=== PATIENT | male | born 1935 | race Caucasian/White ===

== ENCOUNTER 2020-03-13 09:39 | Inpatient (IN) ==
[2020-03-13] MEDS ORDERED: 0.9 % Sodium Chloride 500 ML IVC ONE (10:04)
[2020-03-13 10:11] LABS: Bilirubin,Urine Negative (Negative); Blood,Urine Negative (Negative); Clarity,Urine Clear (Clear); Color,Urine Yellow (Yellow); Glucose,Urine (UA) Normal (Normal); Ketones,Urine Negative (Negative); Leukocyte Esterase,Urine Negative (Negative); Nitrite,Urine Negative (Negative); PH,Urine 5.5 pH Units (5.0-8.0); Protein,Urine Negative (Neg-Trace); Specific Gravity,Urine 1.025 (1.010-1.025); Urobilinogen,Urine Normal (Normal)
[2020-03-13 10:18] LABS: Basophils # 0.1 K/mcL (0.0-0.2); Basophils % 0.9 %; Eosinophils % 0.3 %; Hematocrit 45.9 % (37.5-50.1); Hemoglobin 15.1 g/dL (12.9-16.9); Immature Granulocytes % 0.2 % (0-4); Lymphocytes # 1.3 K/mcL (0.6-4.6); Lymphocytes % 12.4 %; Mean Corpuscular HGB Conc 32.9 g/dL (31.6-35.5); Mean Corpuscular Hemoglobin 31.2 pg (28.0-33.3); Mean Corpuscular Volume 94.8 fL (83.0-100.0); Mean Platelet Volume 9.8 fL (9.4-12.4); Neutrophils # 7.8 K/mcL (1.6-8.9); Platelet Count 292 K/mcL (140-400); Red Blood Count 4.84 M/mcL (4.19-5.50); Red Cell Distribution Width 13.2 % (11.5-14.5); Segmented Neutrophils % 76.2 %; White Blood Count 10.2 K/mcL (4.3-11.1)
[2020-03-13 10:32] LABS: Alanine Aminotransferase 11 Units/L (7-52); Albumin 3.9 g/dL (3.5-5.7); Alkaline Phosphatase 55 Units/L (34-104); Aspartate Amino Transferase 23 Units/L (13-39); BUN/Creatinine Ratio 28 (6-26); Bilirubin,Direct 0.2 mg/dL (0.0-0.2); Bilirubin,Indirect 0.6 mg/dL (0.0-1.0); Bilirubin,Total 0.8 mg/dL (0.3-1.0); Blood Urea Nitrogen 35 mg/dL (8-23); Calcium 9.5 mg/dL (8.6-10.3); Carbon Dioxide 32 mEq/L (23-29); Chloride 101 mEq/L (98-107); Glucose 140 mg/dL (70-105); Osmolality,Calculated 304 (280-300); Potassium 3.5 mEq/L (3.5-5.1); Sodium 142 mEq/L (136-145); Total Protein 7.9 g/dL (6.4-8.9); eGFR For African Americans > 60 (> 60); eGFR For Non-African Americans 55 (> 60)
[2020-03-13 10:52] LABS: Troponin I 0.03 ng/mL (< 0.04)
[2020-03-13] MEDS ORDERED: Naloxone 0.4 MG/ML INJ IVP PRN (13:39)
[2020-03-13] MEDS ORDERED: Ondansetron 4 MG/2 ML VIAL IVP PRN (13:39)
[2020-03-13] MEDS ORDERED: Acetaminophen 325 MG TABLET PO PRN (13:39)
[2020-03-13] MEDS ORDERED: Ipratropium/Albuterol Neb 3 ML IH PRN (13:41)
[2020-03-13 14:05] LABS: INR 3.1
[2020-03-13 14:06] LABS: Prothrombin Time 34.4 Seconds (9.4-12.1)
[2020-03-13] MEDS: Furosemide 20 MG TABLET PO SCH (17:04)
[2020-03-13] MEDS: carvediloL 6.25 MG TABLET PO SCH (17:29)
[2020-03-13] MEDS ORDERED: Warfarin perPT PO PRN (18:00)
[2020-03-14 06:36] LABS: Basophils # 0.1 K/mcL (0.0-0.2); Basophils % 0.7 %; Eosinophils # 0.1 K/mcL (0.0-0.6); Eosinophils % 0.6 %; Hematocrit 44.7 % (37.5-50.1); Hemoglobin 14.6 g/dL (12.9-16.9); Immature Granulocytes % 0.2 % (0-4); Lymphocytes # 1.5 K/mcL (0.6-4.6); Lymphocytes % 17.8 %; Mean Corpuscular HGB Conc 32.7 g/dL (31.6-35.5); Mean Corpuscular Hemoglobin 30.9 pg (28.0-33.3); Mean Corpuscular Volume 94.7 fL (83.0-100.0); Monocytes # 0.8 K/mcL (0.0-1.3); Monocytes % 9.7 %; Neutrophils # 6.2 K/mcL (1.6-8.9); Platelet Count 308 K/mcL (140-400); Red Blood Count 4.72 M/mcL (4.19-5.50); Red Cell Distribution Width 13.1 % (11.5-14.5); White Blood Count 8.7 K/mcL (4.3-11.1)
[2020-03-14 06:50] LABS: INR 3.8; Prothrombin Time 42.8 Seconds (9.4-12.1)
[2020-03-14 06:54] LABS: BUN/Creatinine Ratio 32 (6-26); Blood Urea Nitrogen 35 mg/dL (8-23); Calcium 9.4 mg/dL (8.6-10.3); Carbon Dioxide 31 mEq/L (23-29); Chloride 101 mEq/L (98-107); Glucose 128 mg/dL (70-105); Osmolality,Calculated 304 (280-300); Potassium 3.5 mEq/L (3.5-5.1); Sodium 142 mEq/L (136-145); eGFR For African Americans > 60 (> 60); eGFR For Non-African Americans > 60 (> 60)
[2020-03-14] MEDS: Spironolactone 25 MG TABLET PO SCH (08:02)
[2020-03-14] MEDS: carvediloL 6.25 MG TABLET PO SCH ×2 (08:02→16:57)
[2020-03-14] MEDS: Magnesium Oxide 400 MG TABLET PO SCH (08:02)
[2020-03-14] MEDS: Aspirin 81 MG TAB.CHEW PO SCH (08:03)
[2020-03-14] MEDS: Furosemide 20 MG TABLET PO SCH (14:10)
[2020-03-14] MEDS ORDERED: Isovue-370 500 ML BOTTLE IVP ONE (16:20)
[2020-03-15 07:01] LABS: Hematocrit 44.2 % (37.5-50.1); Hemoglobin 14.6 g/dL (12.9-16.9); Mean Corpuscular Hemoglobin 31.3 pg (28.0-33.3); Mean Corpuscular Volume 94.6 fL (83.0-100.0); Mean Platelet Volume 10.8 fL (9.4-12.4); Platelet Count 301 K/mcL (140-400); Red Blood Count 4.67 M/mcL (4.19-5.50); Red Cell Distribution Width 13.1 % (11.5-14.5); White Blood Count 7.8 K/mcL (4.3-11.1)
[2020-03-15 07:19] LABS: BUN/Creatinine Ratio 35 (6-26); Blood Urea Nitrogen 35 mg/dL (8-23); Calcium 9.2 mg/dL (8.6-10.3); Carbon Dioxide 31 mEq/L (23-29); Chloride 102 mEq/L (98-107); Glucose 131 mg/dL (70-105); Osmolality,Calculated 302 (280-300); Potassium 3.6 mEq/L (3.5-5.1); Sodium 141 mEq/L (136-145); eGFR For African Americans > 60 (> 60); eGFR For Non-African Americans > 60 (> 60)
[2020-03-15] MEDS: Spironolactone 25 MG TABLET PO SCH (08:01)
[2020-03-15] MEDS: Aspirin 81 MG TAB.CHEW PO SCH (08:01)
[2020-03-15] MEDS: Magnesium Oxide 400 MG TABLET PO SCH (08:01)
[2020-03-15] MEDS: carvediloL 6.25 MG TABLET PO SCH ×2 (08:02→17:09)
[2020-03-15 12:06] LABS: INR 2.8; Prothrombin Time 31.3 Seconds (9.4-12.1)
[2020-03-15] MEDS: Furosemide 20 MG TABLET PO SCH (13:11)
[2020-03-15] MEDS ORDERED: *HR* Warfarin 2.5 MG TABLET PO ONE (18:00)
[2020-03-16 08:22] LABS: INR 2.8
[2020-03-16] MEDS: Aspirin 81 MG TAB.CHEW PO SCH (08:50)
[2020-03-16] MEDS: carvediloL 6.25 MG TABLET PO SCH ×2 (08:50→17:02)
[2020-03-16] MEDS: Magnesium Oxide 400 MG TABLET PO SCH (08:51)
[2020-03-16] MEDS: Spironolactone 25 MG TABLET PO SCH (08:51)
[2020-03-16] MEDS: Furosemide 20 MG TABLET PO SCH (14:38)
[2020-03-16] MEDS ORDERED: *HR* Warfarin 2.5 MG TABLET PO ONE (18:00)
[2020-03-16] MEDS: Artificial Tears SOLN 15 ML BOTTLE BOTH EYES SCH (21:22)
[2020-03-17 06:49] VITALS: BP 157/85
[2020-03-17 09:10] LABS: INR 2.8; Prothrombin Time 31.9 Seconds (9.4-12.1)
[2020-03-17] MEDS: Spironolactone 25 MG TABLET PO SCH (09:21)
[2020-03-17] MEDS: Artificial Tears SOLN 15 ML BOTTLE BOTH EYES SCH (09:22)
[2020-03-17] MEDS: carvediloL 6.25 MG TABLET PO SCH (09:22)
[2020-03-17] MEDS: Magnesium Oxide 400 MG TABLET PO SCH (09:22)
[2020-03-17] MEDS: Aspirin 81 MG TAB.CHEW PO SCH (09:22)
[2020-03-17] MEDS ORDERED: Furosemide 40 MG TABLET PO SCH (13:41)
== END 2020-03-17 10:16 | disposition other institution (70) | DRG 641 ==
LOC: INPPIK 09:39 → EMEROOPIK 09:39 → INPPIK 15:00
PROVIDERS: ADMIT Family Medicine; ATTEND Family Medicine

== ENCOUNTER 2020-03-16 11:56 | Inpatient (IN) ==
[2020-03-17] MEDS ORDERED: Acetaminophen 325 MG TABLET PO PRN (10:24)
[2020-03-17] MEDS ORDERED: Ipratropium/Albuterol Neb 3 ML IH PRN (10:31)
[2020-03-17] MEDS ORDERED: Warfarin perPT PO PRN (10:43)
[2020-03-17] MEDS: Artificial Tears SOLN 15 ML BOTTLE BOTH EYES SCH ×3 (13:07→19:54)
[2020-03-17] MEDS: carvediloL 6.25 MG TABLET PO SCH (17:07)
[2020-03-17] MEDS ORDERED: *HR* Warfarin 2.5 MG TABLET PO ONE (18:00)
[2020-03-18 07:56] LABS: BUN/Creatinine Ratio 26 (6-26); Blood Urea Nitrogen 26 mg/dL (8-23); Calcium 9.1 mg/dL (8.6-10.3); Carbon Dioxide 30 mEq/L (23-29); Chloride 107 mEq/L (98-107); Glucose 126 mg/dL (70-105); Osmolality,Calculated 302 (280-300); Potassium 4.2 mEq/L (3.5-5.1); Sodium 143 mEq/L (136-145); eGFR For African Americans > 60 (> 60); eGFR For Non-African Americans > 60 (> 60)
[2020-03-18 08:17] LABS: INR 2.4; Prothrombin Time 27.1 Seconds (9.4-12.1)
[2020-03-18 08:19] LABS: Basophils # 0.1 K/mcL (0.0-0.2); Basophils % 1.3 %; Eosinophils # 0.2 K/mcL (0.0-0.6); Eosinophils % 2.4 %; Hematocrit 44.8 % (37.5-50.1); Hemoglobin 14.6 g/dL (12.9-16.9); Immature Granulocytes % 0.3 % (0-4); Lymphocytes # 1.6 K/mcL (0.6-4.6); Lymphocytes % 16.9 %; Mean Corpuscular HGB Conc 32.6 g/dL (31.6-35.5); Mean Corpuscular Hemoglobin 31.1 pg (28.0-33.3); Mean Corpuscular Volume 95.3 fL (83.0-100.0); Mean Platelet Volume 10.4 fL (9.4-12.4); Monocytes # 0.7 K/mcL (0.0-1.3); Monocytes % 7.6 %; Neutrophils # 6.8 K/mcL (1.6-8.9); Platelet Count 295 K/mcL (140-400); Segmented Neutrophils % 71.5 %; White Blood Count 9.6 K/mcL (4.3-11.1)
[2020-03-18] MEDS ORDERED: Furosemide 20 MG TABLET PO SCH (09:00)
[2020-03-18] MEDS: carvediloL 6.25 MG TABLET PO SCH ×2 (09:11→17:29)
[2020-03-18] MEDS: Spironolactone 25 MG TABLET PO SCH (09:12)
[2020-03-18] MEDS: Aspirin Enteric Coated 81 MG Tablet PO SCH (09:12)
[2020-03-18] MEDS: Magnesium Oxide 400 MG TABLET PO SCH (09:12)
[2020-03-18] MEDS: Artificial Tears SOLN 15 ML BOTTLE BOTH EYES SCH ×4 (09:14→20:05)
[2020-03-18] MEDS ORDERED: *HR* Warfarin 2 MG TABLET PO ONE (18:00)
[2020-03-18] MEDS: Nystatin POWDER 30 GM BOTTLE TP SCH (20:05)
[2020-03-19 06:59] LABS: INR 2.1; Prothrombin Time 24.3 Seconds (9.4-12.1)
[2020-03-19] MEDS: Magnesium Oxide 400 MG TABLET PO SCH (08:56)
[2020-03-19] MEDS: carvediloL 6.25 MG TABLET PO SCH ×2 (08:56→16:51)
[2020-03-19] MEDS: Spironolactone 25 MG TABLET PO SCH (08:56)
[2020-03-19] MEDS: Aspirin Enteric Coated 81 MG Tablet PO SCH (08:56)
[2020-03-19] MEDS: Furosemide 20 MG TABLET PO SCH (08:56)
[2020-03-19] MEDS: Artificial Tears SOLN 15 ML BOTTLE BOTH EYES SCH ×4 (08:57→19:59)
[2020-03-19] MEDS: Nystatin POWDER 30 GM BOTTLE TP SCH ×3 (08:57→19:58)
[2020-03-19] MEDS ORDERED: *HR* Warfarin 2 MG TABLET PO ONE (18:00)
[2020-03-20 07:13] LABS: Prothrombin Time 23.1 Seconds (9.4-12.1)
[2020-03-20] MEDS: Spironolactone 25 MG TABLET PO SCH (08:29)
[2020-03-20] MEDS: carvediloL 6.25 MG TABLET PO SCH ×2 (08:30→17:25)
[2020-03-20] MEDS: Nystatin POWDER 30 GM BOTTLE TP SCH ×3 (08:30→20:18)
[2020-03-20] MEDS: Magnesium Oxide 400 MG TABLET PO SCH (08:30)
[2020-03-20] MEDS: Aspirin Enteric Coated 81 MG Tablet PO SCH (08:30)
[2020-03-20] MEDS: Furosemide 20 MG TABLET PO SCH (08:32)
[2020-03-20] MEDS: Artificial Tears SOLN 15 ML BOTTLE BOTH EYES SCH ×4 (08:40→20:18)
[2020-03-20] MEDS ORDERED: *HR* Warfarin 5 MG TABLET PO ONE (18:00)
[2020-03-21 06:42] VITALS: BP 135/77
[2020-03-21 06:45] LABS: INR 1.7; Prothrombin Time 19.7 Seconds (9.4-12.1)
[2020-03-21] MEDS: Aspirin Enteric Coated 81 MG Tablet PO SCH (10:25)
[2020-03-21] MEDS: Spironolactone 25 MG TABLET PO SCH (10:25)
[2020-03-21] MEDS: carvediloL 6.25 MG TABLET PO SCH (10:25)
[2020-03-21] MEDS: Magnesium Oxide 400 MG TABLET PO SCH (10:25)
[2020-03-21] MEDS: Artificial Tears SOLN 15 ML BOTTLE BOTH EYES SCH (10:33)
[2020-03-21] MEDS: Furosemide 20 MG TABLET PO SCH (10:33)
[2020-03-21] MEDS: Nystatin POWDER 30 GM BOTTLE TP SCH (10:35)
[2020-03-21] MEDS ORDERED: Warfarin 5 MG, Warfarin 2.5 MG PO ONE (18:00)
[2020-03-21] MEDS ORDERED: *HR* Warfarin 7.5 MG TABLET PO ONE (18:00)
== END 2020-03-21 13:20 | disposition hospice, home (50) | DRG 945 ==
LOC: INPPIK 03-17 10:22
PROVIDERS: ADMIT Family Medicine; ATTEND Family Medicine